=== PATIENT | male | born 1965 | race African-American/Black ===

== ENCOUNTER 2022-06-17 23:32 | Emergency (ER) | payer MEDICAID ==
[~2022-06-17] VITALS: Ht 167.6 cm; Wt 68.0 kg
[2022-06-18] MEDS ORDERED: OXYCODONE HCL/ACETAMINOPHEN 5/325MG TABLET PO ONE (00:45)
[2022-06-18] MEDS ORDERED: KETOROLAC 30MG/ML VIAL IM ONE (00:45)
[2022-06-18] MEDS ORDERED: CYCL5TAB MT (02:10)
[2022-06-18] MEDS ORDERED: NAP5EC PO (02:10)
[2022-06-18] MEDS ORDERED: CEPH500T PO (02:10)
[2022-06-18 02:21] VITALS: BP 142/80
== END 2022-06-18 08:06 | disposition home or self-care (01) ==
LOC: ER 23:32
DX: M62.838 Other muscle spasm (principal); L03.115 Cellulitis of right lower limb
CPT/HCPCS: 96372; 99283; J1885

== ENCOUNTER 2022-07-05 09:31 | Emergency (ER) | payer MEDICAID, OTHER ==
[~2022-07-05] VITALS: Ht 167.6 cm; Wt 77.0 kg
[~2022-07-05 09:31] MED LIST: CEPH500T PO; CYCL5TAB MT; NAP5EC PO
[2022-07-05] MEDS ORDERED: SODIUM CHLORIDE 0.9% 1,000 ML IV ONE (10:45)
[2022-07-05] MEDS ORDERED: METOCLOPRAMIDE HCL 10MG/2ML VIAL IV SCH (10:45)
[2022-07-05] MEDS ORDERED: KETOROLAC 30MG/ML VIAL IV NR (10:45)
[2022-07-05] MEDS ORDERED: DIPHENHYDRAMINE 50MG/ML VIAL IV NR (10:45)
[2022-07-05 13:12] VITALS: BP 130/79
== END 2022-07-05 13:17 | disposition home or self-care (01) ==
LOC: ER 09:31
DX: R51.9 Headache, unspecified (principal); Z98.890 Other specified postprocedural states; Z79.899 Other long term (current) drug therapy
CPT/HCPCS: 70450; 96374; 96375; 99285; J1200; J1885; J2765; Z7610

== ENCOUNTER 2022-07-10 07:46 | Inpatient (IN) | payer MEDICAID, OTHER ==
[~2022-07-10] VITALS: Ht 165.1 cm; Wt 71.7 kg
[2022-07-10] MEDS ORDERED: ACETAMINOPHEN 325MG TABLET PO ONE (09:15)
[2022-07-10 09:29] LABS: BASOPHILS % 0.6 % (0.0-2.0); HEMATOCRIT. 36.5 % (42.0-52.0); HEMOGLOBIN. 12.6 g/dL (14.0-18.0); LYMPHOCYTES % 10.5 % (20.0-50.0); MEAN CORPUSCULAR HEMOGLOBIN 33.8 pg (28.0-32.0); MEAN CORPUSCULAR VOLUME 98.3 fL (80.0-94.0); MEAN PLATELET VOLUME 7.7 fl (7.4-10.4); MONOCYTES % 11.9 % (2.0-8.0); PLATELET 253 x1000/uL (130-400); RED BLOOD CELL COUNT 3.72 mill/uL (4.7-6.1); RED CELL DISTRIBUTION WIDTH 15.9 % (11.6-14.6)
[2022-07-10 09:57] LABS: CHLORIDE 98 mEq/L (98-107)
[2022-07-10] MEDS ORDERED: PIPERACILLIN/TAZ 3.375G PREMIX 50 ML IV ONE (10:15)
[2022-07-10] MEDS ORDERED: VANCOMYCIN 1G PREMIX 200 ML IV ONE (10:15)
[2022-07-10] MEDS ORDERED: SODIUM CHLORIDE 0.9% 1000ML BAG (SEPSIS BOLUS) IV ONE (10:15)
[2022-07-10 10:23] LABS: INR 1.4; PROTHROMBIN TIME 15.1 sec (9.6-11.0)
[2022-07-10 10:40] LABS: CLARITY URINE CLOUDY (CLEAR); COLOR URINE YELLOW (YELLOW); KETONES URINE NEGATIVE (NEGATIVE); LEUKOCYTE ESTERASE URINE 2+ (NEGATIVE); NITRITE URINE NEGATIVE (NEGATIVE); OCCULT BLOOD URINE 3+ (NEGATIVE); PH URINE 6.5 (4.5-8.0); PROTEIN URINE 1+ (NEGATIVE); SPECIFIC GRAVITY URINE 1.017 (1.005-1.030)
[2022-07-10] MEDS ORDERED: CHLORDIAZEPOXIDE 25MG CAPSULE PO ONE (11:45)
[2022-07-10] MEDS ORDERED: LORAZEPAM 2MG/ML CPJ IV ONE ×4 (11:45→13:00)
[2022-07-10] MEDS ORDERED: FOLIC ACID 1 MG, THIAMINE HCL 100 MG, MVI, ADULT NO.1 10 ML in DEXTROSE 5% WATER 1,000 ML IV ONE ×4 (11:45)
[2022-07-10] MEDS ORDERED: ETOMIDATE 2MG/ML 10ML VIAL IV ONE (13:15)
[2022-07-10] MEDS ORDERED: SUCCINYLCHOLINE CHLORIDE 200MG/10ML IV ONE (13:15)
[2022-07-10] MEDS ORDERED: PROPOFOL 200MG/20ML VIAL IV ONE (13:15)
[2022-07-10] MEDS ORDERED: PROPOFOL 10MG/ML 100ML 100 ML IV ONE (13:30)
[2022-07-10 14:15] LABS: BG BASE EXCESS -4.6 mmol/L (-2.0-2.0); BG CARBOXYHEMOGLOBIN 0.3 % (0.5-1.5); BG DEOXYHEMOGLOBIN 0.2 % (0.0-5.0); BG FRACTION INSPIRED OXYGEN 100; BG HCO3 ACT 18.6 mmol/L (22.0-26.0); BG METHEMOGLOBIN 0.5 % (0.0-1.5); BG OXYGEN SATURATION 99.8 % (92.0-98.5); BG PH 7.424 (7.350-7.450); BG PO2 381.8 mmHg (75.0-100.0); BG SAMPLE SITE LEFT RADIAL; BG TOTAL HEMOGLOBIN 12.5 g/dL (12.0-18.0); BG TOTAL RESPIRATORY RATE 16 b/min; BG VENT MODE VENT - AC
[2022-07-10] MEDS ORDERED: ENOXAPARIN 40MG/0.4ML SYR SUBCUT SCH (15:45)
[2022-07-10] MEDS ORDERED: IPRATROPIUM/ALBUTEROL 0.5-3(2.5)MG/3ML NEB NEB PRN (15:45)
[2022-07-10] MEDS ORDERED: PIPERACILLIN/TAZOBACTAM 3.375 G in DEXTROSE 5% WATER 50 ML IV SCH (15:45)
[2022-07-10] MEDS ORDERED: DEXT 5%/0.45% NACL 1000ML 1,000 ML IV SCH (15:45)
[2022-07-10] MEDS ORDERED: GUAIFENESIN 200MG/10ML SUGAR FREE UDC PO PRN (15:45)
[2022-07-10] MEDS ORDERED: DOCUSATE SODIUM 100MG CAPSULE PO PRN (15:45)
[2022-07-10] MEDS ORDERED: MAGNESIUM/ALUMINUM HYDROXIDE/SIMETHICONE 30ML UDC PO PRN (15:45)
[2022-07-10] MEDS ORDERED: PIPERACILLIN/TAZ 3.375G PREMIX 50 ML IV SCH (16:30)
[2022-07-10] MEDS ORDERED: NOREPINEPHRINE 8 MG in DEXT 5% WATER 242 ML IV PRN (16:30)
[2022-07-10] MEDS ORDERED: NOREPINEPHRINE 8MG/250ML PMX 250 ML IV PRN (17:05)
[2022-07-10 17:22] LABS: FOLIC ACID (FOLATE) SERUM > 20.00 ng/mL (>5.38); VITAMIN B12 SERUM > 2000.0 pg/mL (211-911)
[2022-07-10] MEDS: PANTOPRAZOLE SODIUM 40 MG/VIAL IV SCH (17:58)
[2022-07-10] MEDS: VANCOMYCIN 1.25GM PMX (XELLIA) 250 ML IV SCH (18:20)
[2022-07-10 21:03] LABS: *AMPHETAMINES SCREEN URINE NEGATIVE (NEGATIVE); *BARBITURATES SCREEN URINE NEGATIVE (NEGATIVE); *BENZODIAZEPINES SCREEN URINE NEGATIVE (NEGATIVE); *COCAINE SCREEN URINE NEGATIVE (NEGATIVE); CANNABINOID URINE SCREEN NEGATIVE (NEGATIVE); METHADONE URINE SCREEN NEGATIVE (NEGATIVE); OPIATES URINE SCREEN NEGATIVE (NEGATIVE); PHENCYCLIDINE URINE SCREEN NEGATIVE (NEGATIVE)
[2022-07-10] MEDS: ACETAMINOPHEN 325MG TABLET PO PRN (23:39)
[2022-07-11] VITALS (42 sets, daily range): BP systolic 125–171; BP diastolic 75–97
[2022-07-11] MEDS ORDERED: NOREPINEPHRINE 8 MG in DEXT 5% WATER 242 ML IV PRN (05:00)
[2022-07-11 05:11] LABS: BASOPHILS % 0.4 % (0.0-2.0); EOSINOPHILS % 0.2 % (0.0-5.0); HEMATOCRIT. 34.2 % (42.0-52.0); HEMOGLOBIN. 11.7 g/dL (14.0-18.0); LYMPHOCYTES % 13.6 % (20.0-50.0); MEAN CORPUSCULAR HEMOGLOBIN 33.4 pg (28.0-32.0); MEAN CORPUSCULAR VOLUME 97.4 fL (80.0-94.0); MEAN PLATELET VOLUME 7.9 fl (7.4-10.4); MONOCYTES % 11.8 % (2.0-8.0); PLATELET 233 x1000/uL (130-400); RED BLOOD CELL COUNT 3.51 mill/uL (4.7-6.1); RED CELL DISTRIBUTION WIDTH 15.7 % (11.6-14.6)
[2022-07-11 05:19] LABS: CHLORIDE 97 mEq/L (98-107)
[2022-07-11 05:37] LABS: HDL CHOLESTEROL 11 mg/dL (40-59); LDL CHOLESTEROL 75 mg/dL (5-100); T4 FREE 1.78 ng/dL (0.76-1.46)
[2022-07-11] MEDS ORDERED: PIPERACILLIN/TAZOBACTAM 3.375 G in DEXTROSE 5% WATER 50 ML IV SCH (06:00)
[2022-07-11] MEDS: VANCOMYCIN 1.25GM PMX (XELLIA) 250 ML IV SCH ×2 (06:02→18:03)
[2022-07-11] MEDS: PROPOFOL 10MG/ML 100ML 100 ML IV PRN ×3 (08:11→23:49)
[2022-07-11] MEDS: PANTOPRAZOLE SODIUM 40 MG/VIAL IV SCH (08:11)
[2022-07-11] MEDS ORDERED: MAGNESIUM 2 G PREMIX 50 ML IV SCH (09:00)
[2022-07-11] MEDS ORDERED: PANTOPRAZOLE SODIUM 40 MG/VIAL IV SCH (09:00)
[2022-07-11] MEDS ORDERED: POTASSIUM CHLORIDE 20MEQ TABLET SR PO SCH (09:00)
[2022-07-11] MEDS ORDERED: LACTULOSE 20G/30ML UDC PO SCH (09:00)
[2022-07-11 10:22] LABS: BG FRACTION INSPIRED OXYGEN 40; BG HCO3 ACT 20.9 mmol/L (22.0-26.0); BG METHEMOGLOBIN 0.3 % (0.0-1.5); BG OXYHEMOGLOBIN 97.7 % (94.0-97.0); BG PCO2 33.7 mmHg (35.0-45.0); BG PO2 105.4 mmHg (75.0-100.0); BG SAMPLE SITE RIGHT RADIAL; BG TOTAL HEMOGLOBIN 12.9 g/dL (12.0-18.0); BG VENT MODE VENT - AC
[2022-07-11] MEDS: DEXT 5%/0.9% NACL 1,000 ML IV SCH ×2 (10:24→20:35)
[2022-07-11] MEDS ORDERED: IPRATROPIUM/ALBUTEROL 0.5-3(2.5)MG/3ML NEB HHN PRN (10:30)
[2022-07-11] MEDS ORDERED: SODIUM PHOS,M-BASIC-D-BASIC 30 MM in DEXT 5% WATER 500 ML IV SCH (11:00)
[2022-07-11] MEDS ORDERED: LACTULOSE 20G/30ML UDC PO PRN (13:30)
[2022-07-11] MEDS: ENOXAPARIN 40MG/0.4ML SYR SUBCUT SCH (14:18)
[2022-07-11] MEDS: PIPERACILLIN/TAZOBACTAM 3.375 G in DEXTROSE 5% WATER 50 ML IV SCH ×2 (14:18→21:41)
[2022-07-11] MEDS: ACETAMINOPHEN 325MG TABLET PO PRN (16:13)
[2022-07-11] MEDS: CLONIDINE 0.1MG TABLET PO PRN (22:55)
[2022-07-12] VITALS (71 sets, daily range): BP systolic 129–176; BP diastolic 77–123
[2022-07-12] MEDS: DEXT 5%/0.9% NACL 1,000 ML IV SCH ×2 (05:04→14:49)
[2022-07-12] MEDS: PIPERACILLIN/TAZOBACTAM 3.375 G in DEXTROSE 5% WATER 50 ML IV SCH ×3 (05:04→21:50)
[2022-07-12 05:47] LABS: BASOPHILS % 0.3 % (0.0-2.0); EOSINOPHILS % 0.2 % (0.0-5.0); HEMATOCRIT. 33.1 % (42.0-52.0); HEMOGLOBIN. 11.3 g/dL (14.0-18.0); LYMPHOCYTES % 13.7 % (20.0-50.0); MEAN CORPUSCULAR HEMOGLOBIN 33.3 pg (28.0-32.0); MEAN CORPUSCULAR VOLUME 97.5 fL (80.0-94.0); MEAN PLATELET VOLUME 7.6 fl (7.4-10.4); MONOCYTES % 10.5 % (2.0-8.0); NEUTROPHILS % 75.3 % (40.0-76.0); PLATELET 237 x1000/uL (130-400); RED BLOOD CELL COUNT 3.39 mill/uL (4.7-6.1); RED CELL DISTRIBUTION WIDTH 15.8 % (11.6-14.6)
[2022-07-12] MEDS: VANCOMYCIN 1.25GM PMX (XELLIA) 250 ML IV SCH (06:14)
[2022-07-12 06:17] LABS: CHLORIDE 102 mEq/L (98-107)
[2022-07-12 06:27] LABS: PHOSPHORUS 1.7 mg/dL (2.5-4.9); TOTAL IRON BINDING CAPACITY 223 ug/dL (250-450)
[2022-07-12] MEDS: PANTOPRAZOLE SODIUM 40 MG/VIAL IV SCH (08:06)
[2022-07-12] MEDS ORDERED: PROPOFOL 10MG/ML 100ML 100 ML IV PRN (08:15)
[2022-07-12 09:09] LABS: BG CARBOXYHEMOGLOBIN 0.3 % (0.5-1.5); BG DEOXYHEMOGLOBIN 1.7 % (0.0-5.0); BG FRACTION INSPIRED OXYGEN 35; BG OXYGEN SATURATION 98.3 % (92.0-98.5); BG PCO2 26.5 mmHg (35.0-45.0); BG PH 7.495 (7.350-7.450); BG PO2 106.5 mmHg (75.0-100.0); BG SAMPLE SITE RIGHT RADIAL; BG TOTAL HEMOGLOBIN 12.2 g/dL (12.0-18.0); BG VENT MODE VENT - AC
[2022-07-12] MEDS: PROPOFOL 10MG/ML 100ML 100 ML IV PRN ×3 (09:23→23:12)
[2022-07-12] MEDS ORDERED: LORAZEPAM 2MG/ML CPJ IV NR (10:30)
[2022-07-12] MEDS ORDERED: MAGNESIUM 4 G PREMIX 100 ML IV NR (11:00)
[2022-07-12] MEDS ORDERED: POTASSIUM CHLORIDE INJ 40 MEQ in DEXT 5% WATER 250 ML IV NR (11:00)
[2022-07-12] MEDS ORDERED: PHENOBARBITAL 30 MG TABLET PO PRN ×2 (11:45)
[2022-07-12] MEDS ORDERED: LORAZEPAM 1MG TABLET PO PRN (11:45)
[2022-07-12] MEDS ORDERED: PHENOBARBITAL 60MG TABLET PO PRN (11:45)
[2022-07-12] MEDS ORDERED: CHLORDIAZEPOXIDE 25MG CAPSULE PO PRN (11:45)
[2022-07-12] MEDS: PHYTONADIONE 10MG/ML AMP SUBCUT SCH (12:32)
[2022-07-12] MEDS: CHLORDIAZEPOXIDE 25MG CAPSULE PO PRN ×2 (12:32→14:46)
[2022-07-12] MEDS ORDERED: SODIUM PHOS,M-BASIC-D-BASIC 30 MM in DEXT 5% WATER 500 ML IV NR (13:00)
[2022-07-12] MEDS: CLONIDINE 0.1MG TABLET PO PRN (14:45)
[2022-07-12] MEDS: ENOXAPARIN 40MG/0.4ML SYR SUBCUT SCH (14:48)
[2022-07-12] MEDS: VANCOMYCIN 750MG PREMIX 150 ML IV SCH ×2 (14:49→21:50)
[2022-07-12] MEDS ORDERED: FERROUS SULFATE 325MG TABLET PO SCH (17:00)
[2022-07-12] MEDS: LORAZEPAM 1MG TABLET PO PRN (18:07)
[2022-07-12] MEDS: ASCORBIC ACID 500 MG TABLET PO SCH (18:07)
[2022-07-12] MEDS: IPRATROPIUM/ALBUTEROL 0.5-3(2.5)MG/3ML NEB HHN SCH (20:47)
[2022-07-13] VITALS (57 sets, daily range): BP systolic 91–171; BP diastolic 38–106
[2022-07-13] MEDS: IPRATROPIUM/ALBUTEROL 0.5-3(2.5)MG/3ML NEB HHN SCH ×4 (00:36→20:17)
[2022-07-13] MEDS: DEXT 5%/0.9% NACL 1,000 ML IV SCH ×3 (00:46→20:17)
[2022-07-13] MEDS: CLONIDINE 0.1MG TABLET PO PRN (03:28)
[2022-07-13] MEDS: LORAZEPAM 1MG TABLET PO PRN ×4 (04:36→17:59)
[2022-07-13] MEDS: PROPOFOL 10MG/ML 100ML 100 ML IV PRN ×2 (05:09→19:03)
[2022-07-13] MEDS ORDERED: IOHEXOL-300 100 ML BOTTLE ONE (05:15)
[2022-07-13] MEDS: PIPERACILLIN/TAZOBACTAM 3.375 G in DEXTROSE 5% WATER 50 ML IV SCH ×3 (05:41→20:17)
[2022-07-13] MEDS: VANCOMYCIN 750MG PREMIX 150 ML IV SCH ×2 (05:43→14:17)
[2022-07-13 05:49] LABS: BASOPHILS % 0.3 % (0.0-2.0); EOSINOPHILS % 0.6 % (0.0-5.0); HEMATOCRIT. 35.9 % (42.0-52.0); HEMOGLOBIN. 11.8 g/dL (14.0-18.0); LYMPHOCYTES % 12.2 % (20.0-50.0); MEAN CORPUSCULAR HEMOGLOBIN 32.8 pg (28.0-32.0); MEAN CORPUSCULAR VOLUME 99.9 fL (80.0-94.0); MEAN PLATELET VOLUME 7.4 fl (7.4-10.4); NEUTROPHILS % 75.9 % (40.0-76.0); PLATELET 224 x1000/uL (130-400); RED CELL DISTRIBUTION WIDTH 15.3 % (11.6-14.6)
[2022-07-13 06:00] LABS: CHLORIDE 98 mEq/L (98-107)
[2022-07-13 06:11] LABS: PHOSPHORUS 2.4 mg/dL (2.5-4.9)
[2022-07-13] MEDS ORDERED: POTASSIUM CHLORIDE INJ 40 MEQ in DEXT 5% WATER 250 ML IV ONE (08:45)
[2022-07-13 08:51] LABS: BG BASE EXCESS -1.2 mmol/L (-2.0-2.0); BG CARBOXYHEMOGLOBIN 0.2 % (0.5-1.5); BG DEOXYHEMOGLOBIN 2.4 % (0.0-5.0); BG FRACTION INSPIRED OXYGEN 35; BG HCO3 ACT 21.1 mmol/L (22.0-26.0); BG METHEMOGLOBIN 0.4 % (0.0-1.5); BG OXYGEN SATURATION 97.6 % (92.0-98.5); BG PCO2 28.7 mmHg (35.0-45.0); BG PH 7.485 (7.350-7.450); BG PO2 93.6 mmHg (75.0-100.0); BG SAMPLE SITE RIGHT RADIAL; BG TOTAL HEMOGLOBIN 12.8 g/dL (12.0-18.0); BG VENT MODE VENT - AC
[2022-07-13] MEDS: FOLIC ACID 1MG TABLET PO SCH (08:57)
[2022-07-13] MEDS: ASCORBIC ACID 500 MG TABLET PO SCH ×2 (08:57→17:59)
[2022-07-13] MEDS: PHYTONADIONE 10MG/ML AMP SUBCUT SCH (08:57)
[2022-07-13] MEDS: CHLORDIAZEPOXIDE 25MG CAPSULE PO PRN ×2 (08:57→20:17)
[2022-07-13] MEDS: PANTOPRAZOLE SODIUM 40 MG/VIAL IV SCH (08:57)
[2022-07-13] MEDS: MULTIVITAMINS,THER W-MINERALS TABLET PO SCH (08:57)
[2022-07-13] MEDS: KCL 20MEQ/100ML X 2 FOR TOTAL KCL 40MEQ/200ML IV SCH ×2 (08:58→10:07)
[2022-07-13] MEDS: THIAMINE HCL 100 MG/1 ML 2ML VIAL IM SCH (09:11)
[2022-07-13] MEDS ORDERED: SODIUM PHOS,M-BASIC-D-BASIC 30 MM in DEXT 5% WATER 500 ML IV NR (10:00)
[2022-07-13] MEDS: FERROUS SULFATE 300MG/5ML UDC PO SCH ×2 (10:05→17:59)
[2022-07-13] MEDS ORDERED: PROPOFOL 10MG/ML 100ML 100 ML IV SCH (12:00)
[2022-07-13] MEDS ORDERED: LACTULOSE 20G/30ML UDC PO NR (14:15)
[2022-07-13] MEDS: ENOXAPARIN 40MG/0.4ML SYR SUBCUT SCH (14:17)
[2022-07-14] VITALS (46 sets, daily range): BP systolic 86–161; BP diastolic 57–109
[2022-07-14] MEDS: PROPOFOL 10MG/ML 100ML 100 ML IV PRN ×2 (00:13→05:05)
[2022-07-14] MEDS: IPRATROPIUM/ALBUTEROL 0.5-3(2.5)MG/3ML NEB HHN SCH ×4 (02:14→20:22)
[2022-07-14] MEDS: PIPERACILLIN/TAZOBACTAM 3.375 G in DEXTROSE 5% WATER 50 ML IV SCH ×3 (05:04→22:44)
[2022-07-14] MEDS: DEXT 5%/0.9% NACL 1,000 ML IV SCH (05:05)
[2022-07-14 05:29] LABS: BASOPHILS % 0.7 % (0.0-2.0); EOSINOPHILS % 2.6 % (0.0-5.0); HEMATOCRIT. 29.9 % (42.0-52.0); HEMOGLOBIN. 10.2 g/dL (14.0-18.0); LYMPHOCYTES % 15.3 % (20.0-50.0); MEAN CORPUSCULAR HEMOGLOBIN 33.7 pg (28.0-32.0); MEAN PLATELET VOLUME 7.9 fl (7.4-10.4); MONOCYTES % 10.1 % (2.0-8.0); NEUTROPHILS % 71.3 % (40.0-76.0); PLATELET 212 x1000/uL (130-400); RED BLOOD CELL COUNT 3.02 mill/uL (4.7-6.1); RED CELL DISTRIBUTION WIDTH 15.5 % (11.6-14.6)
[2022-07-14] MEDS: CHLORDIAZEPOXIDE 25MG CAPSULE PO PRN (05:34)
[2022-07-14 05:39] LABS: CHLORIDE 98 mEq/L (98-107)
[2022-07-14 05:48] LABS: PHOSPHORUS 2.5 mg/dL (2.5-4.9)
[2022-07-14] MEDS ORDERED: POTASSIUM CHLORIDE INJ 40 MEQ in DEXT 5% WATER 250 ML IV ONE (06:45)
[2022-07-14] MEDS: KCL 20MEQ/100ML X 2 FOR TOTAL KCL 40MEQ/200ML IV SCH ×2 (08:12→10:21)
[2022-07-14] MEDS: MULTIVITAMINS,THER W-MINERALS TABLET PO SCH (08:12)
[2022-07-14] MEDS: FERROUS SULFATE 300MG/5ML UDC PO SCH ×2 (08:13→16:21)
[2022-07-14] MEDS: FOLIC ACID 1MG TABLET PO SCH (08:13)
[2022-07-14] MEDS: PANTOPRAZOLE SODIUM 40 MG/VIAL IV SCH (08:13)
[2022-07-14] MEDS: PHYTONADIONE 10MG/ML AMP SUBCUT SCH (08:13)
[2022-07-14] MEDS: THIAMINE HCL 100 MG/1 ML 2ML VIAL IM SCH (08:14)
[2022-07-14] MEDS: ASCORBIC ACID 500 MG TABLET PO SCH ×2 (08:15→16:21)
[2022-07-14] MEDS ORDERED: MAGNESIUM 4 G PREMIX 100 ML IV NR (10:45)
[2022-07-14] MEDS: MAGNESIUM 2 G PREMIX 50 ML IV NR ×2 (10:54→12:34)
[2022-07-14] MEDS ORDERED: KCL 20MEQ/100ML PREMIX 100 ML IV NR (12:30)
[2022-07-14] MEDS: ENOXAPARIN 40MG/0.4ML SYR SUBCUT SCH (14:38)
[2022-07-14 15:11] LABS: BG BASE EXCESS 0.1 mmol/L (-2.0-2.0); BG CARBOXYHEMOGLOBIN 0.3 % (0.5-1.5); BG DEOXYHEMOGLOBIN 5.6 % (0.0-5.0); BG FRACTION INSPIRED OXYGEN 35; BG HCO3 ACT 21.6 mmol/L (22.0-26.0); BG METHEMOGLOBIN 0.3 % (0.0-1.5); BG OXYGEN SATURATION 94.4 % (92.0-98.5); BG OXYHEMOGLOBIN 93.8 % (94.0-97.0); BG PCO2 26.8 mmHg (35.0-45.0); BG PH 7.524 (7.350-7.450); BG PO2 66.1 mmHg (75.0-100.0); BG SAMPLE SITE RIGHT RADIAL; BG TOTAL HEMOGLOBIN 13.2 g/dL (12.0-18.0); BG VENT MODE VENT - CPAP
[2022-07-14] MEDS: LACTULOSE 20G/30ML UDC PO SCH ×2 (16:21→22:44)
[2022-07-14] MEDS: ACETAMINOPHEN 325MG TABLET PO PRN (19:41)
[2022-07-14] MEDS: LORAZEPAM 1MG TABLET PO PRN ×3 (20:22→23:33)
[2022-07-14 22:01] LABS: CHLORIDE 97 mEq/L (98-107)
[2022-07-15] VITALS (46 sets, daily range): BP systolic 99–166; BP diastolic 77–105
[2022-07-15] MEDS: LORAZEPAM 1MG TABLET PO PRN (00:55)
[2022-07-15] MEDS: IPRATROPIUM/ALBUTEROL 0.5-3(2.5)MG/3ML NEB HHN SCH ×4 (02:13→20:37)
[2022-07-15 05:22] LABS: CHLORIDE 95 mEq/L (98-107)
[2022-07-15 05:26] LABS: HEMATOCRIT. 33.9 % (42.0-52.0); HEMOGLOBIN. 11.2 g/dL (14.0-18.0); MEAN CORPUSCULAR HEMOGLOBIN 32.5 pg (28.0-32.0); MEAN PLATELET VOLUME 7.3 fl (7.4-10.4); PLATELET 276 x1000/uL (130-400); RED BLOOD CELL COUNT 3.43 mill/uL (4.7-6.1); RED CELL DISTRIBUTION WIDTH 15.2 % (11.6-14.6)
[2022-07-15 05:33] LABS: PHOSPHORUS 1.8 mg/dL (2.5-4.9)
[2022-07-15] MEDS: PIPERACILLIN/TAZOBACTAM 3.375 G in DEXTROSE 5% WATER 50 ML IV SCH ×3 (06:12→21:27)
[2022-07-15] MEDS: LACTULOSE 20G/30ML UDC PO SCH ×3 (06:12→21:26)
[2022-07-15] MEDS: ASCORBIC ACID 500 MG TABLET PO SCH ×2 (08:35→16:50)
[2022-07-15] MEDS: FERROUS SULFATE 300MG/5ML UDC PO SCH ×2 (08:35→16:50)
[2022-07-15] MEDS: MULTIVITAMINS,THER W-MINERALS TABLET PO SCH (08:35)
[2022-07-15] MEDS: FOLIC ACID 1MG TABLET PO SCH (08:35)
[2022-07-15] MEDS: THIAMINE HCL 100 MG/1 ML 2ML VIAL IM SCH (08:36)
[2022-07-15] MEDS: PANTOPRAZOLE SODIUM 40 MG/VIAL IV SCH (08:36)
[2022-07-15] MEDS ORDERED: POTASSIUM PHOS,M-BASIC-D-BASIC 20 MMOL in DEXT 5% WATER 243.3333 ML IV NR (10:00)
[2022-07-15 10:19] LABS: PLATELET ESTIMATE NORMAL
[2022-07-15] MEDS: SODIUM CHLORIDE 0.9% 1,000 ML IV SCH (11:15)
[2022-07-15] MEDS: CHLORDIAZEPOXIDE 25MG CAPSULE PO PRN (12:05)
[2022-07-15] MEDS: ACETAMINOPHEN 325MG TABLET PO PRN (12:05)
[2022-07-15] MEDS: ENOXAPARIN 40MG/0.4ML SYR SUBCUT SCH (14:23)
[2022-07-16] VITALS (70 sets, daily range): BP systolic 109–193; BP diastolic 60–117
[2022-07-16] MEDS: IPRATROPIUM/ALBUTEROL 0.5-3(2.5)MG/3ML NEB HHN SCH ×4 (01:03→19:43)
[2022-07-16] MEDS: ACETYLCYSTEINE 100MG/ML 10% VIAL 4ML INH SCH ×3 (01:04→13:40)
[2022-07-16 04:10] LABS: BASOPHILS % 0.3 % (0.0-2.0); EOSINOPHILS % 0.3 % (0.0-5.0); HEMATOCRIT. 33.1 % (42.0-52.0); LYMPHOCYTES % 7.8 % (20.0-50.0); MEAN CORPUSCULAR HEMOGLOBIN 32.5 pg (28.0-32.0); MEAN CORPUSCULAR VOLUME 97.8 fL (80.0-94.0); MEAN PLATELET VOLUME 7.3 fl (7.4-10.4); NEUTROPHILS % 82.6 % (40.0-76.0); PLATELET 324 x1000/uL (130-400); RED BLOOD CELL COUNT 3.39 mill/uL (4.7-6.1); RED CELL DISTRIBUTION WIDTH 15.2 % (11.6-14.6)
[2022-07-16] MEDS: SODIUM CHLORIDE 0.9% 1,000 ML IV SCH ×2 (04:10→20:52)
[2022-07-16 04:34] LABS: CHLORIDE 96 mEq/L (98-107); PHOSPHORUS 1.8 mg/dL (2.5-4.9)
[2022-07-16] MEDS: PIPERACILLIN/TAZOBACTAM 3.375 G in DEXTROSE 5% WATER 50 ML IV SCH ×3 (06:37→21:03)
[2022-07-16] MEDS: LACTULOSE 20G/30ML UDC PO SCH ×3 (06:37→21:03)
[2022-07-16] MEDS: FERROUS SULFATE 300MG/5ML UDC PO SCH ×2 (08:10→16:29)
[2022-07-16] MEDS: PANTOPRAZOLE SODIUM 40 MG/VIAL IV SCH (08:10)
[2022-07-16] MEDS: FOLIC ACID 1MG TABLET PO SCH (08:10)
[2022-07-16] MEDS: ASCORBIC ACID 500 MG TABLET PO SCH ×2 (08:11→16:29)
[2022-07-16] MEDS: THIAMINE HCL 100MG TABLET PO SCH (08:11)
[2022-07-16] MEDS: MULTIVITAMINS,THER W-MINERALS TABLET PO SCH (08:11)
[2022-07-16] MEDS ORDERED: KCL 20MEQ/100ML PREMIX 100 ML IV NR (10:00)
[2022-07-16 10:07] LABS: BG BASE EXCESS 1.2 mmol/L (-2.0-2.0); BG CARBOXYHEMOGLOBIN 0.3 % (0.5-1.5); BG DEOXYHEMOGLOBIN 8.2 % (0.0-5.0); BG FRACTION INSPIRED OXYGEN 35; BG HCO3 ACT 23.7 mmol/L (22.0-26.0); BG METHEMOGLOBIN 0.1 % (0.0-1.5); BG OXYGEN SATURATION 91.8 % (92.0-98.5); BG OXYHEMOGLOBIN 91.4 % (94.0-97.0); BG PH 7.501 (7.350-7.450); BG PO2 57.2 mmHg (75.0-100.0); BG SAMPLE SITE RIGHT RADIAL; BG TOTAL HEMOGLOBIN 12.6 g/dL (12.0-18.0); BG VENT MODE VENT - CPAP
[2022-07-16] MEDS ORDERED: POTASSIUM PHOS,M-BASIC-D-BASIC 30 MMOL in DEXT 5% WATER 500 ML IV NR (11:00)
[2022-07-16] MEDS ORDERED: METOPROLOL TARTRATE 5MG/5ML VIAL IV NR (12:15)
[2022-07-16] MEDS: ACETAMINOPHEN 325MG TABLET PO PRN (12:45)
[2022-07-16 13:47] LABS: BG BASE EXCESS 1.5 mmol/L (-2.0-2.0); BG CARBOXYHEMOGLOBIN 0.5 % (0.5-1.5); BG DEOXYHEMOGLOBIN 4.5 % (0.0-5.0); BG FRACTION INSPIRED OXYGEN 40; BG HCO3 ACT 24.7 mmol/L (22.0-26.0); BG METHEMOGLOBIN 0.3 % (0.0-1.5); BG OXYGEN SATURATION 95.5 % (92.0-98.5); BG OXYHEMOGLOBIN 94.7 % (94.0-97.0); BG PCO2 34.2 mmHg (35.0-45.0); BG PH 7.476 (7.350-7.450); BG SAMPLE SITE RIGHT RADIAL; BG TOTAL HEMOGLOBIN 13.2 g/dL (12.0-18.0); BG VENT MODE VENT - AC
[2022-07-16] MEDS: ENOXAPARIN 40MG/0.4ML SYR SUBCUT SCH (14:17)
[2022-07-17] VITALS (71 sets, daily range): BP systolic 106–149; BP diastolic 60–89
[2022-07-17] MEDS: IPRATROPIUM/ALBUTEROL 0.5-3(2.5)MG/3ML NEB HHN SCH ×4 (01:53→19:48)
[2022-07-17] MEDS: ACETAMINOPHEN 325MG TABLET PO PRN ×2 (02:47→16:04)
[2022-07-17 04:29] LABS: BASOPHILS % 0.5 % (0.0-2.0); EOSINOPHILS % 0.7 % (0.0-5.0); HEMOGLOBIN. 10.6 g/dL (14.0-18.0); LYMPHOCYTES % 9.3 % (20.0-50.0); MEAN CORPUSCULAR HEMOGLOBIN 33.3 pg (28.0-32.0); MEAN CORPUSCULAR VOLUME 97.7 fL (80.0-94.0); MEAN PLATELET VOLUME 7.2 fl (7.4-10.4); MONOCYTES % 9.6 % (2.0-8.0); NEUTROPHILS % 79.9 % (40.0-76.0); PLATELET 330 x1000/uL (130-400); RED BLOOD CELL COUNT 3.18 mill/uL (4.7-6.1); RED CELL DISTRIBUTION WIDTH 15.4 % (11.6-14.6)
[2022-07-17 04:30] LABS: CHLORIDE 99 mEq/L (98-107)
[2022-07-17 04:44] LABS: PHOSPHORUS 1.7 mg/dL (2.5-4.9)
[2022-07-17] MEDS: LACTULOSE 20G/30ML UDC PO SCH ×3 (06:18→22:07)
[2022-07-17] MEDS: PIPERACILLIN/TAZOBACTAM 3.375 G in DEXTROSE 5% WATER 50 ML IV SCH ×3 (06:18→22:07)
[2022-07-17] MEDS: ASCORBIC ACID 500 MG TABLET PO SCH ×2 (09:26→16:03)
[2022-07-17] MEDS: PANTOPRAZOLE SODIUM 40 MG/VIAL IV SCH (09:26)
[2022-07-17] MEDS: THIAMINE HCL 100MG TABLET PO SCH (09:26)
[2022-07-17] MEDS: FERROUS SULFATE 300MG/5ML UDC PO SCH ×2 (09:26→16:03)
[2022-07-17] MEDS: MULTIVITAMINS,THER W-MINERALS TABLET PO SCH (09:26)
[2022-07-17 09:30] LABS: BG BASE EXCESS 1.5 mmol/L (-2.0-2.0); BG CARBOXYHEMOGLOBIN 0.3 % (0.5-1.5); BG DEOXYHEMOGLOBIN 2.1 % (0.0-5.0); BG FRACTION INSPIRED OXYGEN 40; BG HCO3 ACT 25.4 mmol/L (22.0-26.0); BG METHEMOGLOBIN 0.5 % (0.0-1.5); BG OXYGEN SATURATION 97.9 % (92.0-98.5); BG OXYHEMOGLOBIN 97.1 % (94.0-97.0); BG PCO2 37.8 mmHg (35.0-45.0); BG PH 7.446 (7.350-7.450); BG PO2 109.8 mmHg (75.0-100.0); BG SAMPLE SITE RIGHT RADIAL; BG TOTAL HEMOGLOBIN 11.7 g/dL (12.0-18.0); BG VENT MODE VENT - AC
[2022-07-17] MEDS ORDERED: NALOXONE HCL 0.4MG/ML VIAL IV PRN (09:30)
[2022-07-17] MEDS ORDERED: LORAZEPAM 2MG/ML CPJ IV PRN (09:30)
[2022-07-17] MEDS ORDERED: MORPHINE SULFATE 2 MG/ML CPJ (NOT FOR IM USE) IV PRN (09:30)
[2022-07-17] MEDS: KCL 20MEQ/100ML PREMIX 100 ML IV SCH ×2 (10:00→11:42)
[2022-07-17] MEDS ORDERED: SODIUM PHOS,M-BASIC-D-BASIC 30 MM in DEXT 5% WATER 500 ML IV NR (11:30)
[2022-07-17] MEDS: SODIUM CHLORIDE 0.9% 1,000 ML IV SCH (13:15)
[2022-07-17] MEDS: ENOXAPARIN 40MG/0.4ML SYR SUBCUT SCH (13:16)
[2022-07-18] VITALS (62 sets, daily range): BP systolic 119–171; BP diastolic 66–91
[2022-07-18] MEDS: ACETYLCYSTEINE 100MG/ML 10% VIAL 4ML INH SCH ×4 (01:49→22:00)
[2022-07-18] MEDS: IPRATROPIUM/ALBUTEROL 0.5-3(2.5)MG/3ML NEB HHN SCH ×4 (01:49→20:07)
[2022-07-18 05:16] LABS: BASOPHILS % 0.9 % (0.0-2.0); EOSINOPHILS % 1.5 % (0.0-5.0); HEMATOCRIT. 30.3 % (42.0-52.0); HEMOGLOBIN. 10.4 g/dL (14.0-18.0); LYMPHOCYTES % 9.7 % (20.0-50.0); MEAN CORPUSCULAR HEMOGLOBIN 33.8 pg (28.0-32.0); MEAN CORPUSCULAR VOLUME 98.7 fL (80.0-94.0); NEUTROPHILS % 77.9 % (40.0-76.0); PLATELET 320 x1000/uL (130-400); RED BLOOD CELL COUNT 3.07 mill/uL (4.7-6.1); RED CELL DISTRIBUTION WIDTH 15.4 % (11.6-14.6)
[2022-07-18] MEDS: PIPERACILLIN/TAZOBACTAM 3.375 G in DEXTROSE 5% WATER 50 ML IV SCH ×3 (05:24→22:29)
[2022-07-18] MEDS: LACTULOSE 20G/30ML UDC PO SCH ×3 (05:24→22:29)
[2022-07-18] MEDS: SODIUM CHLORIDE 0.9% 1,000 ML IV SCH ×2 (05:25→22:29)
[2022-07-18 05:57] LABS: CHLORIDE 99 mEq/L (98-107)
[2022-07-18 06:10] LABS: PHOSPHORUS 2.1 mg/dL (2.5-4.9)
[2022-07-18 08:08] LABS: BG BASE EXCESS 2.4 mmol/L (-2.0-2.0); BG CARBOXYHEMOGLOBIN 0.1 % (0.5-1.5); BG DEOXYHEMOGLOBIN 1.8 % (0.0-5.0); BG FRACTION INSPIRED OXYGEN 40; BG HCO3 ACT 26.2 mmol/L (22.0-26.0); BG METHEMOGLOBIN 0.4 % (0.0-1.5); BG OXYGEN SATURATION 98.2 % (92.0-98.5); BG OXYHEMOGLOBIN 97.7 % (94.0-97.0); BG PCO2 38.1 mmHg (35.0-45.0); BG PH 7.456 (7.350-7.450); BG PO2 105.7 mmHg (75.0-100.0); BG SAMPLE SITE RIGHT RADIAL; BG TOTAL HEMOGLOBIN 11.6 g/dL (12.0-18.0); BG VENT MODE VENT - AC
[2022-07-18] MEDS: ACETAMINOPHEN 325MG TABLET PO PRN (08:16)
[2022-07-18] MEDS: SODIUM CHLORIDE 3% FOR INH 4ML UD NEB INH SCH ×2 (08:18→13:47)
[2022-07-18] MEDS ORDERED: MAGNESIUM 1 G PREMIX 100 ML IV NR (08:30)
[2022-07-18] MEDS ORDERED: SODIUM PHOS,M-BASIC-D-BASIC 20 MM in DEXT 5% WATER 243.3333 ML IV NR (09:00)
[2022-07-18] MEDS ORDERED: POTASSIUM CHLORIDE INJ 40 MEQ in DEXT 5% WATER 250 ML IV ONE (09:15)
[2022-07-18] MEDS ORDERED: KCL 20MEQ/100ML X 2 FOR TOTAL KCL 40MEQ/200ML IV SCH (09:30)
[2022-07-18] MEDS: PANTOPRAZOLE SODIUM 40 MG/VIAL IV SCH (09:41)
[2022-07-18] MEDS: ASCORBIC ACID 500 MG TABLET PO SCH ×2 (09:41→18:01)
[2022-07-18] MEDS: FERROUS SULFATE 300MG/5ML UDC PO SCH ×2 (09:41→14:44)
[2022-07-18] MEDS: MULTIVITAMINS,THER W-MINERALS TABLET PO SCH (09:43)
[2022-07-18] MEDS: KCL 20MEQ/100ML X 2 FOR TOTAL KCL 40MEQ/200ML IV SCH ×2 (10:06→13:02)
[2022-07-18] MEDS: ENOXAPARIN 40MG/0.4ML SYR SUBCUT SCH (14:45)
[2022-07-19] VITALS (75 sets, daily range): BP systolic 137–185; BP diastolic 75–101
[2022-07-19] MEDS: ACETYLCYSTEINE 100MG/ML 10% VIAL 4ML INH SCH ×3 (00:22→21:48)
[2022-07-19] MEDS: SODIUM CHLORIDE 3% FOR INH 4ML UD NEB INH SCH ×3 (00:22→21:48)
[2022-07-19] MEDS: IPRATROPIUM/ALBUTEROL 0.5-3(2.5)MG/3ML NEB HHN SCH ×4 (01:40→15:30)
[2022-07-19] MEDS: LACTULOSE 20G/30ML UDC PO SCH ×3 (06:09→22:34)
[2022-07-19] MEDS: PIPERACILLIN/TAZOBACTAM 3.375 G in DEXTROSE 5% WATER 50 ML IV SCH ×3 (06:09→22:34)
[2022-07-19 08:14] LABS: BG BASE EXCESS 6.6 mmol/L (-2.0-2.0); BG CARBOXYHEMOGLOBIN 0.2 % (0.5-1.5); BG DEOXYHEMOGLOBIN 1.7 % (0.0-5.0); BG FRACTION INSPIRED OXYGEN 40; BG HCO3 ACT 31.6 mmol/L (22.0-26.0); BG METHEMOGLOBIN 0.3 % (0.0-1.5); BG OXYGEN SATURATION 98.3 % (92.0-98.5); BG OXYHEMOGLOBIN 97.8 % (94.0-97.0); BG PH 7.445 (7.350-7.450); BG SAMPLE SITE RIGHT RADIAL; BG TOTAL HEMOGLOBIN 11.8 g/dL (12.0-18.0); BG TOTAL RESPIRATORY RATE 17 b/min; BG VENT MODE VENT - AC
[2022-07-19] MEDS: FERROUS SULFATE 300MG/5ML UDC PO SCH ×2 (09:00→16:36)
[2022-07-19] MEDS: MULTIVITAMINS,THER W-MINERALS TABLET PO SCH (09:00)
[2022-07-19] MEDS: ASCORBIC ACID 500 MG TABLET PO SCH ×2 (09:00→16:36)
[2022-07-19] MEDS: PANTOPRAZOLE SODIUM 40 MG/VIAL IV SCH (09:00)
[2022-07-19 10:05] LABS: BASOPHILS % 1.1 % (0.0-2.0); CHLORIDE 100 mEq/L (98-107); EOSINOPHILS % 2.3 % (0.0-5.0); HEMATOCRIT. 30.1 % (42.0-52.0); HEMOGLOBIN. 10.4 g/dL (14.0-18.0); LYMPHOCYTES % 11.8 % (20.0-50.0); MEAN CORPUSCULAR HEMOGLOBIN 34.3 pg (28.0-32.0); MEAN CORPUSCULAR VOLUME 99.5 fL (80.0-94.0); MEAN PLATELET VOLUME 7.1 fl (7.4-10.4); MONOCYTES % 10.9 % (2.0-8.0); NEUTROPHILS % 73.9 % (40.0-76.0); PLATELET 312 x1000/uL (130-400); RED BLOOD CELL COUNT 3.03 mill/uL (4.7-6.1); RED CELL DISTRIBUTION WIDTH 15.6 % (11.6-14.6)
[2022-07-19 11:41] LABS: BG BASE EXCESS 5.1 mmol/L (-2.0-2.0); BG CARBOXYHEMOGLOBIN 0.3 % (0.5-1.5); BG DEOXYHEMOGLOBIN 2.1 % (0.0-5.0); BG FRACTION INSPIRED OXYGEN 40; BG HCO3 ACT 29.2 mmol/L (22.0-26.0); BG METHEMOGLOBIN 0.9 % (0.0-1.5); BG OXYGEN SATURATION 97.9 % (92.0-98.5); BG OXYHEMOGLOBIN 96.7 % (94.0-97.0); BG PCO2 41.2 mmHg (35.0-45.0); BG PH 7.469 (7.350-7.450); BG PO2 99.4 mmHg (75.0-100.0); BG SAMPLE SITE LEFT RADIAL; BG TOTAL HEMOGLOBIN 12.3 g/dL (12.0-18.0); BG VENT MODE VENT - CPAP
[2022-07-19 11:54] LABS: PHOSPHORUS 2.4 mg/dL (2.5-4.9)
[2022-07-19] MEDS ORDERED: RACEPINEPHRINE 2.25% 0.5ML NEB VIAL HHN PRN ×2 (12:30→12:45)
[2022-07-19] MEDS: SODIUM CHLORIDE 0.9% 1,000 ML IV SCH (13:08)
[2022-07-19 13:09] LABS: BG BASE EXCESS 4.3 mmol/L (-2.0-2.0); BG CARBOXYHEMOGLOBIN 0.2 % (0.5-1.5); BG DEOXYHEMOGLOBIN 2.1 % (0.0-5.0); BG FRACTION INSPIRED OXYGEN 50; BG HCO3 ACT 29.2 mmol/L (22.0-26.0); BG METHEMOGLOBIN 0.3 % (0.0-1.5); BG OXYGEN SATURATION 97.9 % (92.0-98.5); BG OXYHEMOGLOBIN 97.4 % (94.0-97.0); BG PCO2 44.8 mmHg (35.0-45.0); BG PH 7.432 (7.350-7.450); BG PO2 103.7 mmHg (75.0-100.0); BG SAMPLE SITE LEFT RADIAL; BG TOTAL HEMOGLOBIN 12.5 g/dL (12.0-18.0); BG VENT MODE HHN TREATMENT
[2022-07-19] MEDS: ENOXAPARIN 40MG/0.4ML SYR SUBCUT SCH (15:36)
[2022-07-19] MEDS ORDERED: MAGNESIUM 1 G PREMIX 100 ML IV NR (16:00)
[2022-07-19] MEDS ORDERED: SODIUM PHOS,M-BASIC-D-BASIC 30 MM in DEXT 5% WATER 500 ML IV NR (16:00)
[2022-07-20] VITALS (58 sets, daily range): BP systolic 108–171; BP diastolic 58–98
[2022-07-20] MEDS: IPRATROPIUM/ALBUTEROL 0.5-3(2.5)MG/3ML NEB HHN SCH ×4 (02:14→20:47)
[2022-07-20] MEDS: ACETAMINOPHEN 325MG TABLET PO PRN (04:24)
[2022-07-20 05:07] LABS: BASOPHILS % 0.7 % (0.0-2.0); EOSINOPHILS % 0.5 % (0.0-5.0); HEMATOCRIT. 34.4 % (42.0-52.0); HEMOGLOBIN. 11.7 g/dL (14.0-18.0); LYMPHOCYTES % 8.5 % (20.0-50.0); MEAN CORPUSCULAR HEMOGLOBIN 34.2 pg (28.0-32.0); MEAN CORPUSCULAR VOLUME 100.5 fL (80.0-94.0); MEAN PLATELET VOLUME 7.3 fl (7.4-10.4); MONOCYTES % 9.7 % (2.0-8.0); NEUTROPHILS % 80.6 % (40.0-76.0); PLATELET 334 x1000/uL (130-400); RED BLOOD CELL COUNT 3.42 mill/uL (4.7-6.1); RED CELL DISTRIBUTION WIDTH 15.5 % (11.6-14.6)
[2022-07-20 05:13] LABS: CHLORIDE 98 mEq/L (98-107); INR 1.3; PROTHROMBIN TIME 13.8 sec (9.6-11.0)
[2022-07-20 05:24] LABS: PHOSPHORUS 2.4 mg/dL (2.5-4.9)
[2022-07-20] MEDS: PIPERACILLIN/TAZOBACTAM 3.375 G in DEXTROSE 5% WATER 50 ML IV SCH ×3 (05:58→22:17)
[2022-07-20] MEDS: LACTULOSE 20G/30ML UDC PO SCH ×3 (05:58→22:17)
[2022-07-20] MEDS: ACETYLCYSTEINE 100MG/ML 10% VIAL 4ML INH SCH ×2 (07:49→15:18)
[2022-07-20] MEDS: SODIUM CHLORIDE 3% FOR INH 4ML UD NEB INH SCH ×3 (07:49→20:47)
[2022-07-20] MEDS: FERROUS SULFATE 300MG/5ML UDC PO SCH ×2 (09:00→17:00)
[2022-07-20] MEDS: ASCORBIC ACID 500 MG TABLET PO SCH ×2 (09:00→17:02)
[2022-07-20 09:23] LABS: BG BASE EXCESS 8.6 mmol/L (-2.0-2.0); BG CARBOXYHEMOGLOBIN 0.3 % (0.5-1.5); BG DEOXYHEMOGLOBIN 1.6 % (0.0-5.0); BG FRACTION INSPIRED OXYGEN 32; BG HCO3 ACT 33.6 mmol/L (22.0-26.0); BG METHEMOGLOBIN 0.4 % (0.0-1.5); BG OXYGEN SATURATION 98.4 % (92.0-98.5); BG OXYHEMOGLOBIN 97.7 % (94.0-97.0); BG PCO2 48.1 mmHg (35.0-45.0); BG PH 7.462 (7.350-7.450); BG PO2 118.5 mmHg (75.0-100.0); BG SAMPLE SITE LEFT RADIAL; BG TOTAL HEMOGLOBIN 11.7 g/dL (12.0-18.0); BG VENT MODE NASAL CANNULA
[2022-07-20] MEDS: SODIUM CHLORIDE 0.9% 1,000 ML IV SCH (10:25)
[2022-07-20] MEDS: MULTIVITAMINS,THER W-MINERALS TABLET PO SCH (10:33)
[2022-07-20] MEDS: PANTOPRAZOLE SODIUM 40 MG/VIAL IV SCH (10:33)
[2022-07-20] MEDS ORDERED: KCL 20MEQ/100ML PREMIX 100 ML IV NR (15:30)
[2022-07-20] MEDS: ENOXAPARIN 40MG/0.4ML SYR SUBCUT SCH (15:34)
[2022-07-20] MEDS ORDERED: METOPROLOL TARTRATE 5MG/5ML VIAL IV NR (16:45)
[2022-07-20] MEDS: PROPOFOL 10MG/ML 100ML 100 ML IV PRN (17:02)
[2022-07-20 18:37] LABS: BG BASE EXCESS 7.5 mmol/L (-2.0-2.0); BG CARBOXYHEMOGLOBIN 0.2 % (0.5-1.5); BG DEOXYHEMOGLOBIN 0.2 % (0.0-5.0); BG FRACTION INSPIRED OXYGEN 100; BG HCO3 ACT 30.8 mmol/L (22.0-26.0); BG METHEMOGLOBIN 0.4 % (0.0-1.5); BG OXYGEN SATURATION 99.8 % (92.0-98.5); BG OXYHEMOGLOBIN 99.2 % (94.0-97.0); BG PCO2 38.9 mmHg (35.0-45.0); BG PH 7.517 (7.350-7.450); BG PO2 298.7 mmHg (75.0-100.0); BG SAMPLE SITE RIGHT RADIAL; BG TOTAL HEMOGLOBIN 12.7 g/dL (12.0-18.0); BG VENT MODE VENT - AC
[2022-07-21] VITALS (77 sets, daily range): BP systolic 72–139; BP diastolic 45–86
[2022-07-21] MEDS: SODIUM CHLORIDE 3% FOR INH 4ML UD NEB INH SCH (00:31)
[2022-07-21] MEDS: IPRATROPIUM/ALBUTEROL 0.5-3(2.5)MG/3ML NEB HHN SCH ×3 (00:31→14:07)
[2022-07-21] MEDS: SODIUM CHLORIDE 0.9% 1,000 ML IV SCH ×2 (00:38→17:49)
[2022-07-21] MEDS: PIPERACILLIN/TAZOBACTAM 3.375 G in DEXTROSE 5% WATER 50 ML IV SCH ×4 (00:38→23:03)
[2022-07-21] MEDS: PROPOFOL 10MG/ML 100ML 100 ML IV PRN (03:19)
[2022-07-21 05:28] LABS: BASOPHILS % 0.4 % (0.0-2.0); EOSINOPHILS % 0.1 % (0.0-5.0); HEMATOCRIT. 32.7 % (42.0-52.0); HEMOGLOBIN. 10.8 g/dL (14.0-18.0); LYMPHOCYTES % 9.7 % (20.0-50.0); MEAN CORPUSCULAR HEMOGLOBIN 33.3 pg (28.0-32.0); MEAN CORPUSCULAR VOLUME 100.7 fL (80.0-94.0); MEAN PLATELET VOLUME 7.6 fl (7.4-10.4); MONOCYTES % 6.8 % (2.0-8.0); PLATELET 309 x1000/uL (130-400); RED BLOOD CELL COUNT 3.25 mill/uL (4.7-6.1)
[2022-07-21 05:49] LABS: CHLORIDE 101 mEq/L (98-107)
[2022-07-21] MEDS: LACTULOSE 20G/30ML UDC PO SCH ×3 (07:02→23:03)
[2022-07-21 07:47] LABS: BG BASE EXCESS 6.7 mmol/L (-2.0-2.0); BG CARBOXYHEMOGLOBIN 0.3 % (0.5-1.5); BG DEOXYHEMOGLOBIN 1.1 % (0.0-5.0); BG HCO3 ACT 28.8 mmol/L (22.0-26.0); BG METHEMOGLOBIN 0.6 % (0.0-1.5); BG OXYGEN SATURATION 98.9 % (92.0-98.5); BG PCO2 32.7 mmHg (35.0-45.0); BG PH 7.563 (7.350-7.450); BG PO2 145.2 mmHg (75.0-100.0); BG SAMPLE SITE RIGHT RADIAL; BG TOTAL HEMOGLOBIN 11.7 g/dL (12.0-18.0); BG VENT MODE VENT - AC
[2022-07-21] MEDS: FERROUS SULFATE 300MG/5ML UDC PO SCH ×2 (09:38→17:19)
[2022-07-21] MEDS: PANTOPRAZOLE SODIUM 40 MG/VIAL IV SCH (09:38)
[2022-07-21] MEDS: MULTIVITAMINS,THER W-MINERALS TABLET PO SCH (09:38)
[2022-07-21] MEDS: ASCORBIC ACID 500 MG TABLET PO SCH ×2 (09:39→17:19)
[2022-07-21] MEDS ORDERED: KCL 20MEQ/100ML PREMIX 100 ML IV NR (10:00)
[2022-07-21] MEDS ORDERED: PROPOFOL 10MG/ML 100ML 100 ML IV PRN (13:00)
[2022-07-21] MEDS ORDERED: LIDOCAINE HCL 1% 10 MG/ML 10ML VIAL ONE (13:34)
[2022-07-21] MEDS: ENOXAPARIN 40MG/0.4ML SYR SUBCUT SCH (14:00)
[2022-07-21] MEDS: ACETYLCYSTEINE 100MG/ML 10% VIAL 4ML INH SCH (14:07)
[2022-07-21] MEDS: THIAMINE HCL 200 MG in SODIUM CHLORIDE 0.9% 98 ML IV SCH (15:12)
[2022-07-21] MEDS: RIFAXIMIN 550 MG TABLET PO SCH (17:19)
[2022-07-22] VITALS (50 sets, daily range): BP systolic 113–165; BP diastolic 59–84
[2022-07-22] MEDS: IPRATROPIUM/ALBUTEROL 0.5-3(2.5)MG/3ML NEB HHN SCH ×5 (00:23→20:08)
[2022-07-22] MEDS: ACETYLCYSTEINE 100MG/ML 10% VIAL 4ML INH SCH ×3 (00:24→14:42)
[2022-07-22 05:45] LABS: BASOPHILS % 0.5 % (0.0-2.0); EOSINOPHILS % 1.6 % (0.0-5.0); HEMOGLOBIN. 10.2 g/dL (14.0-18.0); LYMPHOCYTES % 9.9 % (20.0-50.0); MEAN CORPUSCULAR HEMOGLOBIN 34.1 pg (28.0-32.0); MEAN CORPUSCULAR VOLUME 100.7 fL (80.0-94.0); MEAN PLATELET VOLUME 7.5 fl (7.4-10.4); MONOCYTES % 8.6 % (2.0-8.0); NEUTROPHILS % 79.4 % (40.0-76.0); PLATELET 267 x1000/uL (130-400); RED BLOOD CELL COUNT 2.98 mill/uL (4.7-6.1); RED CELL DISTRIBUTION WIDTH 16.1 % (11.6-14.6)
[2022-07-22] MEDS: PIPERACILLIN/TAZOBACTAM 3.375 G in DEXTROSE 5% WATER 50 ML IV SCH ×3 (06:09→22:14)
[2022-07-22] MEDS: LACTULOSE 20G/30ML UDC PO SCH ×3 (06:14→22:14)
[2022-07-22 06:32] LABS: CHLORIDE 109 mEq/L (98-107)
[2022-07-22 06:37] LABS: HEPATITIS B SURFACE ANTIGEN NEGATIVE
[2022-07-22 06:50] LABS: PHOSPHORUS 2.5 mg/dL (2.5-4.9)
[2022-07-22] MEDS: RIFAXIMIN 550 MG TABLET PO SCH ×2 (08:24→16:38)
[2022-07-22] MEDS: MULTIVITAMINS,THER W-MINERALS TABLET PO SCH (08:24)
[2022-07-22] MEDS: FERROUS SULFATE 300MG/5ML UDC PO SCH ×2 (08:24→16:38)
[2022-07-22] MEDS: PANTOPRAZOLE SODIUM 40 MG/VIAL IV SCH (08:24)
[2022-07-22] MEDS: ASCORBIC ACID 500 MG TABLET PO SCH ×2 (08:25→16:38)
[2022-07-22 09:01] LABS: BG BASE EXCESS 6.2 mmol/L (-2.0-2.0); BG CARBOXYHEMOGLOBIN 0.3 % (0.5-1.5); BG DEOXYHEMOGLOBIN 1.2 % (0.0-5.0); BG FRACTION INSPIRED OXYGEN 45; BG HCO3 ACT 30.9 mmol/L (22.0-26.0); BG METHEMOGLOBIN 0.2 % (0.0-1.5); BG OXYGEN SATURATION 98.8 % (92.0-98.5); BG OXYHEMOGLOBIN 98.3 % (94.0-97.0); BG PH 7.454 (7.350-7.450); BG PO2 136.1 mmHg (75.0-100.0); BG SAMPLE SITE RIGHT RADIAL; BG VENT MODE VENT - AC
[2022-07-22] MEDS: SODIUM CHLORIDE 0.9% 1,000 ML IV SCH (10:31)
[2022-07-22] MEDS: PROPOFOL 10MG/ML 100ML 100 ML IV PRN (12:11)
[2022-07-22] MEDS: ENOXAPARIN 40MG/0.4ML SYR SUBCUT SCH (14:00)
[2022-07-22] MEDS: THIAMINE HCL 200 MG in SODIUM CHLORIDE 0.9% 98 ML IV SCH (14:59)
[2022-07-22] MEDS: ACETAMINOPHEN 325MG TABLET PO PRN (22:16)
[2022-07-23] VITALS (48 sets, daily range): BP systolic 120–170; BP diastolic 62–109
[2022-07-23] MEDS: IPRATROPIUM/ALBUTEROL 0.5-3(2.5)MG/3ML NEB HHN SCH ×4 (00:21→20:41)
[2022-07-23] MEDS: ACETYLCYSTEINE 100MG/ML 10% VIAL 4ML INH SCH ×4 (00:21→20:41)
[2022-07-23] MEDS: SODIUM CHLORIDE 0.9% 1,000 ML IV SCH ×2 (02:24→19:33)
[2022-07-23] MEDS: PROPOFOL 10MG/ML 100ML 100 ML IV PRN (02:25)
[2022-07-23 04:19] LABS: BASOPHILS % 0.7 % (0.0-2.0); EOSINOPHILS % 2.4 % (0.0-5.0); HEMATOCRIT. 32.6 % (42.0-52.0); HEMOGLOBIN. 10.7 g/dL (14.0-18.0); LYMPHOCYTES % 14.8 % (20.0-50.0); MEAN CORPUSCULAR HEMOGLOBIN 33.6 pg (28.0-32.0); MEAN PLATELET VOLUME 7.5 fl (7.4-10.4); MONOCYTES % 9.9 % (2.0-8.0); NEUTROPHILS % 72.2 % (40.0-76.0); PLATELET 228 x1000/uL (130-400); RED BLOOD CELL COUNT 3.19 mill/uL (4.7-6.1)
[2022-07-23 04:41] LABS: CHLORIDE 114 mEq/L (98-107)
[2022-07-23] MEDS: LACTULOSE 20G/30ML UDC PO SCH ×3 (06:51→22:40)
[2022-07-23] MEDS: PIPERACILLIN/TAZOBACTAM 3.375 G in DEXTROSE 5% WATER 50 ML IV SCH ×3 (06:51→22:40)
[2022-07-23 08:29] LABS: BG BASE EXCESS 5.4 mmol/L (-2.0-2.0); BG CARBOXYHEMOGLOBIN 0.3 % (0.5-1.5); BG DEOXYHEMOGLOBIN 2.1 % (0.0-5.0); BG FRACTION INSPIRED OXYGEN 40; BG HCO3 ACT 30.2 mmol/L (22.0-26.0); BG METHEMOGLOBIN 0.1 % (0.0-1.5); BG OXYGEN SATURATION 97.9 % (92.0-98.5); BG OXYHEMOGLOBIN 97.5 % (94.0-97.0); BG PCO2 45.3 mmHg (35.0-45.0); BG PH 7.442 (7.350-7.450); BG PO2 107.4 mmHg (75.0-100.0); BG SAMPLE SITE LEFT RADIAL; BG TOTAL HEMOGLOBIN 11.5 g/dL (12.0-18.0); BG TOTAL RESPIRATORY RATE 15 b/min; BG VENT MODE VENT - AC
[2022-07-23] MEDS: PANTOPRAZOLE SODIUM 40 MG/VIAL IV SCH (09:07)
[2022-07-23] MEDS: FERROUS SULFATE 300MG/5ML UDC PO SCH ×2 (09:07→17:11)
[2022-07-23] MEDS: RIFAXIMIN 550 MG TABLET PO SCH ×2 (09:07→17:11)
[2022-07-23] MEDS: MULTIVITAMINS,THER W-MINERALS TABLET PO SCH (09:07)
[2022-07-23] MEDS: ASCORBIC ACID 500 MG TABLET PO SCH ×2 (09:07→17:12)
[2022-07-23] MEDS ORDERED: POTASSIUM CHLORIDE INJ 40 MEQ in DEXT 5% WATER 500 ML IV ONE (09:45)
[2022-07-23] MEDS: KCL 20MEQ/100ML X 2 FOR TOTAL KCL 40MEQ/200ML IV SCH ×2 (10:45→13:40)
[2022-07-23] MEDS: ENOXAPARIN 40MG/0.4ML SYR SUBCUT SCH (13:40)
[2022-07-23] MEDS: THIAMINE HCL 200 MG in SODIUM CHLORIDE 0.9% 98 ML IV SCH (15:14)
[2022-07-24] VITALS (78 sets, daily range): BP systolic 126–181; BP diastolic 64–97
[2022-07-24] MEDS: PROPOFOL 10MG/ML 100ML 100 ML IV PRN ×2 (00:17→17:09)
[2022-07-24] MEDS: IPRATROPIUM/ALBUTEROL 0.5-3(2.5)MG/3ML NEB HHN SCH ×4 (02:20→20:40)
[2022-07-24 04:23] LABS: BASOPHILS % 0.6 % (0.0-2.0); EOSINOPHILS % 2.5 % (0.0-5.0); HEMATOCRIT. 29.3 % (42.0-52.0); HEMOGLOBIN. 9.9 g/dL (14.0-18.0); MEAN CORPUSCULAR HEMOGLOBIN 34.3 pg (28.0-32.0); MEAN CORPUSCULAR VOLUME 101.5 fL (80.0-94.0); MEAN PLATELET VOLUME 7.7 fl (7.4-10.4); MONOCYTES % 8.7 % (2.0-8.0); NEUTROPHILS % 74.2 % (40.0-76.0); PLATELET 223 x1000/uL (130-400); RED BLOOD CELL COUNT 2.88 mill/uL (4.7-6.1); RED CELL DISTRIBUTION WIDTH 16.1 % (11.6-14.6)
[2022-07-24 04:44] LABS: CHLORIDE 117 mEq/L (98-107)
[2022-07-24] MEDS: LACTULOSE 20G/30ML UDC PO SCH ×3 (06:23→23:09)
[2022-07-24] MEDS: PIPERACILLIN/TAZOBACTAM 3.375 G in DEXTROSE 5% WATER 50 ML IV SCH ×3 (06:23→23:08)
[2022-07-24 08:06] LABS: BG BASE EXCESS 4.2 mmol/L (-2.0-2.0); BG CARBOXYHEMOGLOBIN 0.3 % (0.5-1.5); BG DEOXYHEMOGLOBIN 2.2 % (0.0-5.0); BG HCO3 ACT 28.6 mmol/L (22.0-26.0); BG METHEMOGLOBIN 0.2 % (0.0-1.5); BG OXYGEN SATURATION 97.8 % (92.0-98.5); BG OXYHEMOGLOBIN 97.3 % (94.0-97.0); BG PH 7.451 (7.350-7.450); BG PO2 103.6 mmHg (75.0-100.0); BG SAMPLE SITE RIGHT RADIAL; BG TOTAL HEMOGLOBIN 10.3 g/dL (12.0-18.0); BG VENT MODE VENT - AC
[2022-07-24] MEDS: ACETYLCYSTEINE 100MG/ML 10% VIAL 4ML INH SCH ×2 (08:26→15:14)
[2022-07-24] MEDS: FERROUS SULFATE 300MG/5ML UDC PO SCH ×2 (09:45→16:42)
[2022-07-24] MEDS: MULTIVITAMINS,THER W-MINERALS TABLET PO SCH (09:46)
[2022-07-24] MEDS: ASCORBIC ACID 500 MG TABLET PO SCH ×2 (09:46→16:42)
[2022-07-24] MEDS: PANTOPRAZOLE SODIUM 40 MG/VIAL IV SCH (09:46)
[2022-07-24] MEDS: RIFAXIMIN 550 MG TABLET PO SCH ×2 (09:46→16:42)
[2022-07-24] MEDS: SODIUM CHLORIDE 0.9% 1,000 ML IV SCH (12:10)
[2022-07-24] MEDS: CLONIDINE 0.1MG TABLET PO PRN (14:00)
[2022-07-24] MEDS: ENOXAPARIN 40MG/0.4ML SYR SUBCUT SCH (14:01)
[2022-07-24] MEDS: THIAMINE HCL 200 MG in SODIUM CHLORIDE 0.9% 98 ML IV SCH (15:10)
[2022-07-24] MEDS ORDERED: KCL 20MEQ/100ML PREMIX 100 ML IV NR (16:30)
[2022-07-25] VITALS (81 sets, daily range): BP systolic 103–187; BP diastolic 56–99
[2022-07-25] MEDS: IPRATROPIUM/ALBUTEROL 0.5-3(2.5)MG/3ML NEB HHN SCH ×4 (01:03→20:59)
[2022-07-25] MEDS: ACETYLCYSTEINE 100MG/ML 10% VIAL 4ML INH SCH ×3 (01:14→14:42)
[2022-07-25] MEDS: CLONIDINE 0.1MG TABLET PO PRN (01:29)
[2022-07-25] MEDS: ACETAMINOPHEN 325MG TABLET PO PRN (01:32)
[2022-07-25] MEDS: SODIUM CHLORIDE 0.9% 1,000 ML IV SCH ×2 (04:35→21:27)
[2022-07-25 05:28] LABS: HEMATOCRIT 28.9 % (42.0-52.0); HEMOGLOBIN 9.7 g/dL (14.0-18.0); MEAN CORPUSCULAR VOLUME 101.7 fL (80.0-94.0); PLATELET 199 x1000/uL (130-400); RED BLOOD CELL COUNT 2.84 mill/uL (4.7-6.1); RED CELL DISTRIBUTION WIDTH 16.4 % (11.6-14.6)
[2022-07-25 05:48] LABS: CHLORIDE 116 mEq/L (98-107)
[2022-07-25] MEDS: LACTULOSE 20G/30ML UDC PO SCH ×3 (06:00→21:22)
[2022-07-25] MEDS: PIPERACILLIN/TAZOBACTAM 3.375 G in DEXTROSE 5% WATER 50 ML IV SCH ×3 (06:00→21:23)
[2022-07-25] MEDS ORDERED: PROPOFOL 10MG/ML 100ML 100 ML IV PRN ×3 (08:15→19:00)
[2022-07-25] MEDS: ASCORBIC ACID 500 MG TABLET PO SCH ×2 (09:00→17:02)
[2022-07-25] MEDS: MULTIVITAMINS,THER W-MINERALS TABLET PO SCH (09:00)
[2022-07-25] MEDS: RIFAXIMIN 550 MG TABLET PO SCH ×2 (09:00→17:02)
[2022-07-25] MEDS: FERROUS SULFATE 300MG/5ML UDC PO SCH ×2 (09:00→17:02)
[2022-07-25 09:11] LABS: BG CARBOXYHEMOGLOBIN 0.2 % (0.5-1.5); BG DEOXYHEMOGLOBIN 1.6 % (0.0-5.0); BG FRACTION INSPIRED OXYGEN 40; BG HCO3 ACT 25.8 mmol/L (22.0-26.0); BG METHEMOGLOBIN 0.6 % (0.0-1.5); BG OXYGEN SATURATION 98.4 % (92.0-98.5); BG OXYHEMOGLOBIN 97.6 % (94.0-97.0); BG PH 7.406 (7.350-7.450); BG PO2 149.1 mmHg (75.0-100.0); BG SAMPLE SITE RIGHT RADIAL; BG TOTAL HEMOGLOBIN 10.7 g/dL (12.0-18.0); BG VENT MODE VENT - AC
[2022-07-25] MEDS: PANTOPRAZOLE SODIUM 40 MG/VIAL IV SCH (09:22)
[2022-07-25] MEDS ORDERED: EPINEPHRINE 5 MG in SODIUM CHLORIDE 0.9% 245 ML IV PRN (13:00)
[2022-07-25] MEDS: THIAMINE HCL 200 MG in SODIUM CHLORIDE 0.9% 98 ML IV SCH (14:46)
[2022-07-25] MEDS ORDERED: VECURONIUM BROMIDE 10 MG/VIAL IV ONE (15:29)
[2022-07-25] MEDS ORDERED: KCL 20MEQ/100ML PREMIX 100 ML IV NR (15:30)
[2022-07-25] MEDS ORDERED: MAGNESIUM 1 G PREMIX 100 ML IV NR (16:30)
[2022-07-25] MEDS: KCL 20MEQ/100ML PREMIX 100 ML IV SCH ×2 (17:00→20:52)
[2022-07-26] VITALS (63 sets, daily range): BP systolic 110–169; BP diastolic 69–104
[2022-07-26] MEDS: ACETYLCYSTEINE 100MG/ML 10% VIAL 4ML INH SCH ×3 (00:29→14:27)
[2022-07-26] MEDS: IPRATROPIUM/ALBUTEROL 0.5-3(2.5)MG/3ML NEB HHN SCH ×4 (00:29→20:06)
[2022-07-26 03:07] LABS: HEMOGLOBIN 10.1 g/dL (14.0-18.0); MEAN CORPUSCULAR HEMOGLOBIN 34.5 pg (28.0-32.0); MEAN CORPUSCULAR VOLUME 102.4 fL (80.0-94.0); PLATELET 185 x1000/uL (130-400); RED BLOOD CELL COUNT 2.93 mill/uL (4.7-6.1); RED CELL DISTRIBUTION WIDTH 16.4 % (11.6-14.6)
[2022-07-26 03:12] LABS: CHLORIDE 114 mEq/L (98-107)
[2022-07-26 03:13] LABS: INR 1.3; PROTHROMBIN TIME 13.5 sec (9.6-11.0)
[2022-07-26] MEDS: PIPERACILLIN/TAZOBACTAM 3.375 G in DEXTROSE 5% WATER 50 ML IV SCH ×3 (05:58→21:41)
[2022-07-26] MEDS: LACTULOSE 20G/30ML UDC PO SCH ×3 (05:58→21:41)
[2022-07-26 07:53] LABS: BG BASE EXCESS 2.6 mmol/L (-2.0-2.0); BG CARBOXYHEMOGLOBIN 0.3 % (0.5-1.5); BG DEOXYHEMOGLOBIN 1.4 % (0.0-5.0); BG HCO3 ACT 26.9 mmol/L (22.0-26.0); BG METHEMOGLOBIN 0.5 % (0.0-1.5); BG OXYGEN SATURATION 98.6 % (92.0-98.5); BG OXYHEMOGLOBIN 97.8 % (94.0-97.0); BG PCO2 40.2 mmHg (35.0-45.0); BG PH 7.443 (7.350-7.450); BG PO2 124.9 mmHg (75.0-100.0); BG SAMPLE SITE RIGHT BRACHIAL; BG TOTAL HEMOGLOBIN 10.4 g/dL (12.0-18.0); BG VENT MODE VENT - AC
[2022-07-26] MEDS: ASCORBIC ACID 500 MG TABLET PO SCH ×2 (09:00→16:29)
[2022-07-26] MEDS: MULTIVITAMINS,THER W-MINERALS TABLET PO SCH (09:00)
[2022-07-26] MEDS: RIFAXIMIN 550 MG TABLET PO SCH ×2 (09:00→16:29)
[2022-07-26] MEDS: FERROUS SULFATE 300MG/5ML UDC PO SCH ×2 (09:00→16:29)
[2022-07-26] MEDS: PANTOPRAZOLE SODIUM 40 MG/VIAL IV SCH (09:37)
[2022-07-26] MEDS ORDERED: SODIUM CHLORIDE 0.9% 10ML VIAL ONE (09:42)
[2022-07-26] MEDS ORDERED: EPHEDRINE SULFATE 50MG/ML VIAL ONE (09:42)
[2022-07-26] MEDS ORDERED: PROPOFOL 200MG/20ML VIAL IV ONE (09:42)
[2022-07-26] MEDS ORDERED: PHENYLEPHRINE HCL 10 MG/ML 1ML (IV VIAL) IV ONE (09:43)
[2022-07-26] MEDS ORDERED: ROCURONIUM BROMIDE 10MG/ML VIAL 5ML IV ONE (09:43)
[2022-07-26] MEDS ORDERED: MIDAZOLAM HCL 5 MG/5 ML VIAL ONE (09:43)
[2022-07-26] MEDS ORDERED: CEFAZOLIN 1000MG PREMIX 50 ML IV NR (10:30)
[2022-07-26] MEDS: SODIUM CHLORIDE 0.9% 1,000 ML IV SCH (13:42)
[2022-07-26] MEDS: CLONIDINE 0.1MG TABLET PO PRN (13:53)
[2022-07-26] MEDS: THIAMINE HCL 200 MG in SODIUM CHLORIDE 0.9% 98 ML IV SCH (14:29)
[2022-07-27] VITALS (91 sets, daily range): BP systolic 120–167; BP diastolic 71–111
[2022-07-27] MEDS: ACETYLCYSTEINE 100MG/ML 10% VIAL 4ML INH SCH ×2 (00:08→08:41)
[2022-07-27] MEDS: IPRATROPIUM/ALBUTEROL 0.5-3(2.5)MG/3ML NEB HHN SCH ×2 (00:08→08:41)
[2022-07-27 05:35] LABS: CHLORIDE 110 mEq/L (98-107)
[2022-07-27 05:39] LABS: BASOPHILS % 0.5 % (0.0-2.0); EOSINOPHILS % 3.2 % (0.0-5.0); HEMATOCRIT. 29.7 % (42.0-52.0); HEMOGLOBIN. 10.2 g/dL (14.0-18.0); MEAN CORPUSCULAR HEMOGLOBIN 34.8 pg (28.0-32.0); MEAN CORPUSCULAR VOLUME 101.6 fL (80.0-94.0); MONOCYTES % 9.4 % (2.0-8.0); NEUTROPHILS % 67.9 % (40.0-76.0); PLATELET 195 x1000/uL (130-400); RED BLOOD CELL COUNT 2.92 mill/uL (4.7-6.1); RED CELL DISTRIBUTION WIDTH 16.4 % (11.6-14.6)
[2022-07-27] MEDS: PIPERACILLIN/TAZOBACTAM 3.375 G in DEXTROSE 5% WATER 50 ML IV SCH ×3 (06:06→21:56)
[2022-07-27] MEDS: SODIUM CHLORIDE 0.9% 1,000 ML IV SCH (06:08)
[2022-07-27] MEDS: LACTULOSE 20G/30ML UDC PO SCH ×3 (06:14→21:51)
[2022-07-27] MEDS: ASCORBIC ACID 500 MG TABLET PO SCH ×2 (08:50→17:00)
[2022-07-27] MEDS: MULTIVITAMINS,THER W-MINERALS TABLET PO SCH (08:50)
[2022-07-27] MEDS: PANTOPRAZOLE SODIUM 40 MG/VIAL IV SCH (08:50)
[2022-07-27] MEDS: FERROUS SULFATE 300MG/5ML UDC PO SCH ×2 (08:50→17:00)
[2022-07-27] MEDS ORDERED: BUPIVACAINE HCL/PF 0.5% (5MG/ML) 10ML ONE (12:37)
[2022-07-27] MEDS: THIAMINE HCL 200 MG in SODIUM CHLORIDE 0.9% 98 ML IV SCH (14:52)
[2022-07-27] MEDS ORDERED: KCL 20MEQ/100ML PREMIX 100 ML IV SCH (15:00)
[2022-07-27] MEDS ORDERED: ROCURONIUM BROMIDE 10MG/ML VIAL 5ML IV ONE (16:14)
[2022-07-27] MEDS ORDERED: MIDAZOLAM HCL 2 MG/2 ML VIAL ONE (16:14)
[2022-07-27] MEDS ORDERED: DEXAMETHASONE 4MG/ML 1ML VIAL ONE (16:29)
[2022-07-27] MEDS ORDERED: ONDANSETRON HCL 4MG/2ML INJ ONE (16:29)
[2022-07-27] MEDS ORDERED: FENTANYL CITRATE/PF 50MCG/ML 2ML VIAL IV PRN (16:45)
[2022-07-27] MEDS ORDERED: FENTANYL CITRATE/PF 50MCG/ML 2ML VIAL ONE (16:48)
[2022-07-27] MEDS: RIFAXIMIN 550 MG TABLET PO SCH (21:00)
[2022-07-28] VITALS (51 sets, daily range): BP systolic 114–159; BP diastolic 71–102
[2022-07-28] MEDS: SODIUM CHLORIDE 0.9% 1,000 ML IV SCH ×2 (00:25→15:06)
[2022-07-28 05:25] LABS: BASOPHILS % 0.3 % (0.0-2.0); HEMATOCRIT. 32.7 % (42.0-52.0); HEMOGLOBIN. 11.1 g/dL (14.0-18.0); LYMPHOCYTES % 8.3 % (20.0-50.0); MEAN CORPUSCULAR HEMOGLOBIN 34.4 pg (28.0-32.0); MEAN CORPUSCULAR VOLUME 101.5 fL (80.0-94.0); MEAN PLATELET VOLUME 8.3 fl (7.4-10.4); MONOCYTES % 4.7 % (2.0-8.0); NEUTROPHILS % 86.7 % (40.0-76.0); PLATELET 218 x1000/uL (130-400); RED BLOOD CELL COUNT 3.22 mill/uL (4.7-6.1); RED CELL DISTRIBUTION WIDTH 16.2 % (11.6-14.6)
[2022-07-28 05:45] LABS: CHLORIDE 107 mEq/L (98-107)
[2022-07-28] MEDS: LACTULOSE 20G/30ML UDC PO SCH ×3 (06:00→21:10)
[2022-07-28] MEDS: RIFAXIMIN 550 MG TABLET PO SCH ×2 (09:06→21:09)
[2022-07-28] MEDS: MULTIVITAMINS,THER W-MINERALS TABLET PO SCH (09:06)
[2022-07-28] MEDS: PANTOPRAZOLE SODIUM 40 MG/VIAL IV SCH (09:06)
[2022-07-28] MEDS: FERROUS SULFATE 300MG/5ML UDC PO SCH ×2 (09:06→17:16)
[2022-07-28] MEDS: ASCORBIC ACID 500 MG TABLET PO SCH ×2 (09:07→17:16)
[2022-07-28] MEDS ORDERED: IPRATROPIUM/ALBUTEROL 0.5-3(2.5)MG/3ML NEB HHN PRN (12:45)
[2022-07-28] MEDS: THIAMINE HCL 200 MG in SODIUM CHLORIDE 0.9% 98 ML IV SCH (15:06)
[2022-07-28] MEDS: IPRATROPIUM/ALBUTEROL 0.5-3(2.5)MG/3ML NEB HHN SCH (20:10)
[2022-07-29] VITALS (14 sets, daily range): BP systolic 127–172; BP diastolic 77–95
[2022-07-29] MEDS: IPRATROPIUM/ALBUTEROL 0.5-3(2.5)MG/3ML NEB HHN SCH ×4 (01:29→19:56)
[2022-07-29] MEDS: LACTULOSE 20G/30ML UDC PO SCH ×3 (05:48→21:39)
[2022-07-29 06:11] LABS: BASOPHILS % 0.9 % (0.0-2.0); EOSINOPHILS % 0.9 % (0.0-5.0); HEMOGLOBIN. 10.4 g/dL (14.0-18.0); LYMPHOCYTES % 15.4 % (20.0-50.0); MEAN CORPUSCULAR HEMOGLOBIN 34.1 pg (28.0-32.0); MEAN CORPUSCULAR VOLUME 101.1 fL (80.0-94.0); MEAN PLATELET VOLUME 8.2 fl (7.4-10.4); MONOCYTES % 8.2 % (2.0-8.0); NEUTROPHILS % 74.6 % (40.0-76.0); PLATELET 226 x1000/uL (130-400); RED BLOOD CELL COUNT 3.06 mill/uL (4.7-6.1); RED CELL DISTRIBUTION WIDTH 16.4 % (11.6-14.6)
[2022-07-29 06:19] LABS: CHLORIDE 110 mEq/L (98-107)
[2022-07-29] MEDS ORDERED: POTASSIUM CHLORIDE 20MEQ/PACKET GT NR ×2 (08:00→22:30)
[2022-07-29] MEDS: SODIUM CHLORIDE 0.9% 1,000 ML IV SCH (08:35)
[2022-07-29] MEDS: ASCORBIC ACID 500 MG TABLET PO SCH ×2 (09:44→16:15)
[2022-07-29] MEDS: PANTOPRAZOLE SODIUM 40 MG/VIAL IV SCH (09:44)
[2022-07-29] MEDS: MULTIVITAMINS,THER W-MINERALS TABLET PO SCH (09:44)
[2022-07-29] MEDS: RIFAXIMIN 550 MG TABLET PO SCH ×2 (09:44→21:39)
[2022-07-29] MEDS: FERROUS SULFATE 300MG/5ML UDC PO SCH ×2 (09:44→16:15)
[2022-07-29] MEDS: ENOXAPARIN 40MG/0.4ML SYR SUBCUT SCH (14:51)
[2022-07-29] MEDS: THIAMINE HCL 200 MG in SODIUM CHLORIDE 0.9% 98 ML IV SCH (14:51)
[2022-07-29] MEDS: ACETAMINOPHEN 325MG TABLET PO PRN (16:16)
[2022-07-29] MEDS ORDERED: LACT10SO7 PO (20:33)
[2022-07-29] MEDS ORDERED: IPRA3AMP9 HHN (20:33)
[2022-07-29] MEDS ORDERED: RIFA550T PO (20:33)
[2022-07-29 20:55] LABS: CHLORIDE 111 mEq/L (98-107)
[2022-07-29 21:01] LABS: PHOSPHORUS 1.7 mg/dL (2.5-4.9)
[2022-07-29] MEDS: KCL 20MEQ/100ML PREMIX 100 ML IV SCH (22:31)
[2022-07-30] VITALS (16 sets, daily range): BP systolic 88–158; BP diastolic 57–111
[2022-07-30] MEDS: SODIUM CHLORIDE 0.9% 1,000 ML IV SCH ×2 (01:30→10:27)
[2022-07-30] MEDS: KCL 20MEQ/100ML PREMIX 100 ML IV SCH (01:31)
[2022-07-30] MEDS: IPRATROPIUM/ALBUTEROL 0.5-3(2.5)MG/3ML NEB HHN SCH ×4 (01:57→20:37)
[2022-07-30] MEDS: LACTULOSE 20G/30ML UDC PO SCH ×3 (05:49→21:28)
[2022-07-30 07:32] LABS: CHLORIDE 112 mEq/L (98-107)
[2022-07-30 07:34] LABS: HEMATOCRIT 32.9 % (42.0-52.0); HEMOGLOBIN 11.2 g/dL (14.0-18.0); MEAN CORPUSCULAR HEMOGLOBIN 34.5 pg (28.0-32.0); MEAN CORPUSCULAR VOLUME 101.3 fL (80.0-94.0); PLATELET 221 x1000/uL (130-400); RED BLOOD CELL COUNT 3.25 mill/uL (4.7-6.1); RED CELL DISTRIBUTION WIDTH 16.9 % (11.6-14.6)
[2022-07-30] MEDS: RIFAXIMIN 550 MG TABLET PO SCH ×2 (08:34→21:25)
[2022-07-30] MEDS: PANTOPRAZOLE SODIUM 40 MG/VIAL IV SCH (08:34)
[2022-07-30] MEDS: FERROUS SULFATE 300MG/5ML UDC PO SCH ×2 (08:34→16:44)
[2022-07-30] MEDS: MULTIVITAMINS,THER W-MINERALS TABLET PO SCH (08:34)
[2022-07-30] MEDS: ASCORBIC ACID 500 MG TABLET PO SCH ×2 (08:35→16:44)
[2022-07-30] MEDS: ACETAMINOPHEN 325MG TABLET PO PRN ×2 (08:35→16:45)
[2022-07-30] MEDS ORDERED: POTASSIUM PHOS,M-BASIC-D-BASIC 20 MMOL in DEXT 5% WATER 243.3333 ML IV SCH (10:00)
[2022-07-30] MEDS ORDERED: MAGNESIUM 1 G PREMIX 100 ML IV SCH (10:00)
[2022-07-30] MEDS: ENOXAPARIN 40MG/0.4ML SYR SUBCUT SCH (14:44)
[2022-07-30] MEDS: THIAMINE HCL 200 MG in SODIUM CHLORIDE 0.9% 98 ML IV SCH (14:44)
[2022-07-30] MEDS: CLONIDINE 0.1MG TABLET PO PRN (16:45)
== END 2022-07-31 06:39 | DRG 4 ==
LOC: ER 07:46 → EDBEDREQ 10:09 → EDBEDREQTM 10:09 → EDBEDREQSVC 10:09 → MICUSO 13:04 → EDBEDREQSVC 13:11 → EDBEDREQ 13:15 → EDBEDREQTM 13:15 → CVICU 07-11 03:10 → CMPBEDREQ 07-12 21:16 → MICUNO 07-18 17:00 → 5EST 07-28 17:50
PROVIDERS: ADMIT Internal Medicine; ATTEND Internal Medicine
PROC: 5A1955Z Respiratory Ventilation, Greater than 96 Consecutive Hours (ICD-10-PCS; principal; 2022-07-10)
PROC: 0BH17EZ Insertion of Endotracheal Airway into Trachea, Via Natural or Artificial Opening (ICD-10-PCS; 2022-07-10)
PROC: 06HY33Z Insertion of Infusion Device into Lower Vein, Percutaneous Approach (ICD-10-PCS; 2022-07-10)
PROC: B54BZZA Ultrasonography of Right Lower Extremity Veins, Guidance (ICD-10-PCS; 2022-07-10)
PROC: 0BH17EZ Insertion of Endotracheal Airway into Trachea, Via Natural or Artificial Opening (ICD-10-PCS; 2022-07-16)
PROC: 5A1945Z Respiratory Ventilation, 24-96 Consecutive Hours (ICD-10-PCS; 2022-07-16)
PROC: 5A1955Z Respiratory Ventilation, Greater than 96 Consecutive Hours (ICD-10-PCS; 2022-07-20)
PROC: 0BH17EZ Insertion of Endotracheal Airway into Trachea, Via Natural or Artificial Opening (ICD-10-PCS; 2022-07-20)
PROC: 02HV33Z Insertion of Infusion Device into Superior Vena Cava, Percutaneous Approach (ICD-10-PCS; 2022-07-21)
PROC: B548ZZA Ultrasonography of Superior Vena Cava, Guidance (ICD-10-PCS; 2022-07-21)
PROC: 0GBJ0ZZ Excision of Thyroid Gland Isthmus, Open Approach (ICD-10-PCS; 2022-07-25)
PROC: 0B110F4 Bypass Trachea to Cutaneous with Tracheostomy Device, Open Approach (ICD-10-PCS; 2022-07-25)
PROC: 0DJ08ZZ Inspection of Upper Intestinal Tract, Via Natural or Artificial Opening Endoscopic (ICD-10-PCS; 2022-07-26)
PROC: 0DH67UZ Insertion of Feeding Device into Stomach, Via Natural or Artificial Opening (ICD-10-PCS; 2022-07-27)
DX: A41.01 Sepsis due to Methicillin susceptible Staphylococcus aureus (principal); J69.0 Pneumonitis due to inhalation of food and vomit; G82.50 Quadriplegia, unspecified; F10.931 Alcohol use, unspecified with withdrawal delirium; E44.0 Moderate protein-calorie malnutrition; G92.8 Other toxic encephalopathy; E72.20 Disorder of urea cycle metabolism, unspecified; J15.211 Pneumonia due to Methicillin susceptible Staphylococcus aureus; D68.9 Coagulation defect, unspecified; J96.01 Acute respiratory failure with hypoxia; N39.0 Urinary tract infection, site not specified; E11.44 Type 2 diabetes mellitus with diabetic amyotrophy; E87.1 Hypo-osmolality and hyponatremia; R65.20 Severe sepsis without septic shock; D64.9 Anemia, unspecified; E78.00 Pure hypercholesterolemia, unspecified; E11.65 Type 2 diabetes mellitus with hyperglycemia; R47.01 Aphasia; A41.51 Sepsis due to Escherichia coli [E. coli]; J15.5 Pneumonia due to Escherichia coli; R49.1 Aphonia; R26.9 Unspecified abnormalities of gait and mobility; R13.12 Dysphagia, oropharyngeal phase; K70.30 Alcoholic cirrhosis of liver without ascites; E88.09 Other disorders of plasma-protein metabolism, not elsewhere classified; Z20.822 Contact with and (suspected) exposure to COVID-19; E83.42 Hypomagnesemia; I10 Essential (primary) hypertension; E87.6 Hypokalemia; E83.39 Other disorders of phosphorus metabolism; Z79.2 Long term (current) use of antibiotics; Z79.899 Other long term (current) drug therapy; Z68.26 Body mass index [BMI] 26.0-26.9, adult; Z99.11 Dependence on respirator [ventilator] status
CPT/HCPCS: 31500; 36415; 36573; 36600; 71045; 73030; 74178; 76700; 80048; 80053; 80061; 80076; 80202; 80305; 80320; 81003; 82140; 82248; 82270; 82375; 82607; 82728; 82746; 82805; 83036; 83540; 83550; 83605; 83735; 83880; 83930; 84100; 84134; 84145; 84439; 84443; 84478; 84484; 85025; 85027; 85044; 86705; 86709; 86803; 87070; 87077; 87186; 87340; 87426; 87804; 93005; 93306; 93970; 94002; 94003; 94640; 99291; A6261; C1725; C9113; C9803; J1100; J1650; J2060; J2250; J2270; J2370; J2405; J2543; J2704; J3010; J3370; J3411; J3430; J3475; J3480; J3490; J7030; J7042; J7050; J7060; J7070; J7608; Q9967; A4315; G0480